=== PATIENT | female | born 2000 | race Caucasian/White ===

== ENCOUNTER 2023-12-25 12:46 | Emergency (ER) | payer OTHER ==
[2023-12-25 12:54] VITALS: BP 120/78; PULSE 90; RESP 16; TEMP 98.4; BMI 30.7
[2023-12-25] MEDS ORDERED: DEXAMETHASONE SOD PHOSPHATE 10 MG/1 ML VIAL ONE (13:18)
[2023-12-25] MEDS ORDERED: ALBUTEROL SO4 2.5/IPRATROPIUM 0.5 INH SOL 3 ML VIAL.NEB. NEB ONE (13:18)
[2023-12-25] MEDS: DEXAMETHASONE LIQUID 0.5 MG/5 ML PO ONE (13:27)
[2023-12-25] MEDS: ALBUTEROL SO4 2.5/IPRATROPIUM 0.5 INH SOL 3 ML VIAL.NEB. NEB ONE (13:27)
[2023-12-25 13:54] LABS: THROAT:GRP A STREP NOT DETECTED (NOTDETECTED)
== END 2023-12-25 14:57 | disposition home or self-care (01) ==
LOC: JERFT 12:46
PROC: 3E0F7GC Introduction of Other Therapeutic Substance into Respiratory Tract, Via Natural or Artificial Opening (ICD-10-PCS; principal; 2023-12-25)
DX: J98.01 Acute bronchospasm (principal); B34.9 Viral infection, unspecified; R06.02 Shortness of breath; R05.9 Cough, unspecified; Z20.822 Contact with and (suspected) exposure to COVID-19
CPT/HCPCS: 0241U-QW; 87651; 99284-25